=== PATIENT | male | born 1985 | race Caucasian/White ===

== ENCOUNTER 2016-12-16 21:17 | Emergency (ER) | payer OTHER ==
[~2016-12-16] VITALS: Ht 177.8 cm; Wt 74.8 kg
[2016-12-16 21:28] VITALS: BP 144/80
--- NOTE | 2016-12-16 21:32 | PHYS DOC ---
Past Medical History Past Medical History: No Pertinent History (medical problems) Past Surgical History: No Surgical History Alcohol Use: None Drug Use: None Adult General Chief Complaint Chief Complaint: LACERATION/AVULSION HPI HPI Patient is a 31 year old male presents to the emergency department stating that he cut his right thumb with a knife tonight. He states he had the knife is left-handed and he was reaching for something in his right hand when he cut himself. He is unsure when his last tetanus immunization occurred. Bleeding is currently controlled. Review of Systems Review of Systems Constitutional: Denies fever or chills [] Eyes: Denies change in visual acuity, redness, or eye pain [] HENT: Denies nasal congestion or sore throat [] Respiratory: Denies cough or shortness of breath [] Cardiovascular: No additional information not addressed in HPI [] GI: Denies abdominal pain, nausea, vomiting, bloody stools or diarrhea [] : Denies dysuria or hematuria [] Musculoskeletal: Denies back pain or joint pain [] Integument: Denies rash or skin lesions. Laceration to the right thumb. Neurologic: Denies headache, focal weakness or sensory changes [] Endocrine: Denies polyuria or polydipsia [] Current Medications Current Medications Current Medications Medications (Trade) Dose Ordered Sig/Divya Start Time Stop Time Status Last Admin Dose Admin Diphtheria/ Tetanus/Acell Pertussis (Boostrix) 0.5 ml ONCE ONCE 12/16/16 21:45 12/16/16 21:46 Allergies Allergies Allergies Coded Allergies Type Severity Reaction Last Updated Verified No Known Drug Allergies 12/16/16 No Physical Exam Physical Exam Constitutional: Well developed, well nourished, no acute distress, non-toxic appearance. [] HENT: Normocephalic, atraumatic, bilateral external ears normal, oropharynx moist, no oral exudates, nose normal. [] Eyes: PERRLA, EOMI, conjunctiva normal, no discharge. [] Neck: Normal range of motion, no tenderness, supple, no stridor. [] Cardiovascular:Heart rate regular rhythm Lungs & Thorax: No respiratory distress noted Skin: Warm, dry, no erythema, no rash. Patient with a 1 cm laceration noted to his left thumb. Back: No tenderness Extremities: No tenderness, no cyanosis, no clubbing, ROM intact, no edema. [] Neurologic: Alert and oriented X 3, normal motor function, normal sensory function, no focal deficits noted. [] Psychologic: Affect normal, judgement normal, mood normal. [] Current Patient Data Vital Signs Vital Signs Date Time Temp Pulse Resp B/P (MAP) Pulse Ox O2 Delivery O2 Flow Rate FiO2 12/16/16 21:28 98.2 82 18 97 Room Air 98.2 EKG EKG [] Radiology/Procedures Radiology/Procedures [] Course & Med Decision Making Course & Med Decision Making Pertinent Labs and Imaging studies reviewed. (See chart for details) Site was cleaned with Betadine. Dermabond was placed over the site with Steri- Strips. Patient was provided with discharge instructions, treatment regimens and follow-up recommendations. He was provided with a tetanus immunization here in the emergency department. Recommended Tylenol or ibuprofen for pain and discomfort. Also recommended wearing a splint on the thumb at least the next 3 days to help promote healing. Patient agrees with discharge instructions treatment regimens and follow-up recommendations. Signs and symptoms to return back to emergency department as been provided. [] Dragon Disclaimer Dragon Disclaimer This electronic medical record was generated, in whole or in part, using a voice recognition dictation system. Departure Departure Impression: Primary Impression: Laceration Disposition: 01 HOME, SELF-CARE Condition: STABLE Patient Instructions: Laceration Care, Adult, [id number], Skin Adhesive Strip Removal, Stitches, Lolo or Skin Adhesive Strips, [id number] Additional Instructions: Activity as tolerated. Tylenol or ibuprofen for pain and discomfort. Keep the area clean and dry. Steri-Strips should fall off in approximately 7-10 days. Wear the splint for the next 3 days. Watch for signs and symptoms of infection: Redness, warmth, tenderness or any yellow/greenish drainage coming From the site physician occur follow-up with your work comp doctor immediately. Return back to emergency prior signs symptoms of become worse. BRENNA MCINTYRE APRN Dec 16, 2016 21:32
[2016-12-16] MEDS ORDERED: DIPHTH,PERTUSS(ACELL),TET TOX 0.5 ML DISP.SYRIN. VAX IM ONE (21:45)
== END 2016-12-16 22:07 | disposition home or self-care (01) ==
LOC: ER 21:17
DX: S61.011A Laceration without foreign body of right thumb without damage to nail, initial encounter (principal); W26.0XXA Contact with knife, initial encounter; Y93.89 Activity, other specified; Y99.8 Other external cause status; Y92.89 Other specified places as the place of occurrence of the external cause
CPT/HCPCS: 12001; 90471; 90715; 99283-25